=== PATIENT | female | born 1935 | race African-American/Black ===

== ENCOUNTER 2021-08-13 13:04 | Inpatient (IN) | payer MEDICARE ==
[~2021-08-13] VITALS: Ht 167.6 cm; Wt 70.3 kg
[2021-08-13] MEDS ORDERED: IOHEXOL-350 100 ML BOTTLE ONE (14:31)
[2021-08-13 14:39] LABS: BASOPHILS % 0.5 % (0.0-2.0); EOSINOPHILS % 1.4 % (0.0-5.0); HEMATOCRIT. 38.5 % (36.0-48.0); HEMOGLOBIN. 12.6 g/dL (12.0-16.0); LYMPHOCYTES % 31.5 % (20.0-50.0); MEAN CORPUSCULAR HEMOGLOBIN 30.3 pg (28.0-32.0); MEAN CORPUSCULAR VOLUME 92.3 fL (81.0-99.0); MEAN PLATELET VOLUME 7.7 fl (7.4-10.4); NEUTROPHILS % 57.6 % (40.0-76.0); PLATELET 151 x1000/uL (130-400); RED BLOOD CELL COUNT 4.17 mill/uL (4.2-5.4); RED CELL DISTRIBUTION WIDTH 13.8 % (11.6-14.6)
[2021-08-13 14:41] LABS: CHLORIDE 110 mEq/L (98-107)
[2021-08-13 14:47] LABS: ETHANOL BLOOD < 10 mg/dL
[2021-08-13 19:08] LABS: CLARITY URINE CLEAR (CLEAR); COLOR URINE YELLOW (YELLOW); KETONES URINE NEGATIVE (NEGATIVE); LEUKOCYTE ESTERASE URINE TRACE (NEGATIVE); NITRITE URINE NEGATIVE (NEGATIVE); OCCULT BLOOD URINE NEGATIVE (NEGATIVE); PROTEIN URINE NEGATIVE (NEGATIVE); SPECIFIC GRAVITY URINE 1.049 (1.005-1.030); UROBILINOGEN URINE 0.2 E.U./dL (0.2-1.0)
[2021-08-13 19:32] LABS: *AMPHETAMINES SCREEN URINE NEGATIVE (NEGATIVE); *BARBITURATES SCREEN URINE NEGATIVE (NEGATIVE); *BENZODIAZEPINES SCREEN URINE NEGATIVE (NEGATIVE); *COCAINE SCREEN URINE NEGATIVE (NEGATIVE); METHADONE URINE SCREEN NEGATIVE (NEGATIVE); OPIATES URINE SCREEN NEGATIVE (NEGATIVE)
[2021-08-13 19:33] LABS: CANNABINOID URINE SCREEN NEGATIVE (NEGATIVE); PHENCYCLIDINE URINE SCREEN NEGATIVE (NEGATIVE)
[2021-08-14] VITALS (7 sets, daily range): BP systolic 105–149; BP diastolic 58–71
[2021-08-14] MEDS ORDERED: ONDANSETRON HCL 4MG/2ML INJ IV PRN (01:30)
[2021-08-14] MEDS ORDERED: CLONIDINE 0.1MG TABLET PO PRN (01:30)
[2021-08-14] MEDS ORDERED: GUAIFENESIN 200MG/10ML SUGAR FREE UDC PO PRN (01:30)
[2021-08-14] MEDS ORDERED: ZOLPIDEM TARTRATE 5MG TABLET PO PRN (01:30)
[2021-08-14] MEDS ORDERED: DIPHENHYDRAMINE 50MG/ML VIAL IV PRN (01:30)
[2021-08-14] MEDS ORDERED: ACETAMINOPHEN 325MG TABLET PO PRN ×2 (01:30)
[2021-08-14] MEDS ORDERED: MAGNESIUM/ALUMINUM HYDROXIDE/SIMETHICONE 30ML UDC PO PRN (01:30)
[2021-08-14] MEDS: SODIUM CHLORIDE 0.9% INJ 3ML FLUSH IVF SCH ×3 (06:28→20:28)
[2021-08-14] MEDS: APIXABAN 5 MG TABLET PO SCH ×2 (08:56→18:01)
[2021-08-14] MEDS: METOPROLOL TARTRATE 50MG TABLET PO SCH ×2 (08:56→20:26)
[2021-08-14] MEDS ORDERED: FAMO20TA8 PO (14:19)
[2021-08-14] MEDS ORDERED: FAMO20TA8 MT (14:20)
[2021-08-14] MEDS ORDERED: LOSA50TA41 PO (14:21)
[2021-08-14] MEDS ORDERED: APIX5TAB PO ×2 (14:22→14:26)
[2021-08-14] MEDS ORDERED: ATOR40TA70 PO (14:25)
[2021-08-14] MEDS: ATORVASTATIN CALCIUM 10MG TABLET PO SCH (20:28)
[2021-08-15] VITALS: BP 113/60
[2021-08-15 04:00] VITALS: BP 112/49
[2021-08-15 05:36] LABS: BASOPHILS % 0.4 % (0.0-2.0); EOSINOPHILS % 1.3 % (0.0-5.0); HEMATOCRIT. 36.2 % (36.0-48.0); LYMPHOCYTES % 42.3 % (20.0-50.0); MEAN CORPUSCULAR HEMOGLOBIN 30.3 pg (28.0-32.0); MEAN CORPUSCULAR VOLUME 91.2 fL (81.0-99.0); MEAN PLATELET VOLUME 7.8 fl (7.4-10.4); PLATELET 149 x1000/uL (130-400); RED BLOOD CELL COUNT 3.97 mill/uL (4.2-5.4); RED CELL DISTRIBUTION WIDTH 13.5 % (11.6-14.6)
[2021-08-15 05:55] LABS: CHLORIDE 108 mEq/L (98-107)
[2021-08-15 08:00] VITALS: BP 120/56
[2021-08-15] MEDS: APIXABAN 5 MG TABLET PO SCH ×2 (08:38→18:26)
[2021-08-15] MEDS: METOPROLOL TARTRATE 25MG TABLET PO SCH ×2 (08:39→21:00)
[2021-08-15 12:00] VITALS: BP 107/55
[2021-08-15 16:00] VITALS: BP 103/56
[2021-08-15 20:00] VITALS: BP 100/52
[2021-08-15] MEDS: ATORVASTATIN CALCIUM 10MG TABLET PO SCH (21:13)
[2021-08-15] MEDS: SODIUM CHLORIDE 0.9% INJ 3ML FLUSH IVF SCH (21:14)
[2021-08-16] VITALS (7 sets, daily range): BP systolic 99–123; BP diastolic 52–63
[2021-08-16 05:31] LABS: BASOPHILS % 0.3 % (0.0-2.0); EOSINOPHILS % 1.9 % (0.0-5.0); HEMATOCRIT. 36.4 % (36.0-48.0); HEMOGLOBIN. 12.1 g/dL (12.0-16.0); MEAN CORPUSCULAR HEMOGLOBIN 30.5 pg (28.0-32.0); MEAN CORPUSCULAR VOLUME 91.4 fL (81.0-99.0); MEAN PLATELET VOLUME 7.9 fl (7.4-10.4); MONOCYTES % 8.8 % (2.0-8.0); PLATELET 151 x1000/uL (130-400); RED BLOOD CELL COUNT 3.98 mill/uL (4.2-5.4); RED CELL DISTRIBUTION WIDTH 13.3 % (11.6-14.6)
[2021-08-16] MEDS: SODIUM CHLORIDE 0.9% INJ 3ML FLUSH IVF SCH ×2 (06:02→15:50)
[2021-08-16 06:06] LABS: CHLORIDE 108 mEq/L (98-107)
[2021-08-16 06:19] LABS: LDL CHOLESTEROL 27 mg/dL (5-100)
[2021-08-16 06:22] LABS: HDL CHOLESTEROL 50 mg/dL (40-59)
[2021-08-16] MEDS: METOPROLOL TARTRATE 25MG TABLET PO SCH ×2 (07:59→20:19)
[2021-08-16] MEDS: APIXABAN 5 MG TABLET PO SCH ×2 (07:59→17:24)
[2021-08-16] MEDS: ATORVASTATIN CALCIUM 10MG TABLET PO SCH (20:19)
== END 2021-08-16 21:20 | DRG 65 ==
LOC: ER 13:27 → 6WST 20:29 → EDBEDREQ 20:34 → EDBEDREQSVC 20:34 → EDBEDREQTM 20:34 → ENRESERV 23:54
PROVIDERS: ADMIT Internal Medicine; ATTEND Internal Medicine
PROC: 4A10X4Z Monitoring of Central Nervous Electrical Activity, External Approach (ICD-10-PCS; principal; 2021-08-16)
DX: I63.9 Cerebral infarction, unspecified (principal); I48.19 Other persistent atrial fibrillation; G81.94 Hemiplegia, unspecified affecting left nondominant side; I42.9 Cardiomyopathy, unspecified; I11.0 Hypertensive heart disease with heart failure; I50.9 Heart failure, unspecified; E78.00 Pure hypercholesterolemia, unspecified; E78.5 Hyperlipidemia, unspecified; I48.0 Paroxysmal atrial fibrillation; R26.0 Ataxic gait; I08.1 Rheumatic disorders of both mitral and tricuspid valves; Z96.652 Presence of left artificial knee joint; Z79.01 Long term (current) use of anticoagulants; Z79.899 Other long term (current) drug therapy; I69.392 Facial weakness following cerebral infarction
CPT/HCPCS: 36415; 70496; 70498; 70551; 71045; 80048; 80053; 80061; 80305; 80320; 81003; 82962; 84484; 85025; 93005; 93306; 95816; 97162; 97166; 97530; 99291; Q9967; G0480

== ENCOUNTER 2021-08-16 21:20 | Inpatient (IN) | payer MEDICARE ==
[~2021-08-16] VITALS: Ht 167.6 cm; Wt 70.3 kg
[2021-08-16 21:20] VITALS: BP_SYST 110; BP_SYST 120; BP_DIAS 64
[~2021-08-16 21:20] MED LIST: APIX5TAB PO; ATOR40TA70 PO; FAMO20TA8 MT; FAMO20TA8 PO; LOSA50TA41 PO
[2021-08-16] MEDS ORDERED: ZOLPIDEM TARTRATE 5MG TABLET PO PRN (23:15)
[2021-08-16] MEDS ORDERED: CLONIDINE 0.1MG TABLET PO PRN (23:15)
[2021-08-16] MEDS ORDERED: DIPHENHYDRAMINE 25MG CAPSULE PO PRN (23:15)
[2021-08-16] MEDS ORDERED: GUAIFENESIN 200MG/10ML SUGAR FREE UDC PO PRN (23:15)
[2021-08-16] MEDS ORDERED: MAGNESIUM/ALUMINUM HYDROXIDE/SIMETHICONE 30ML UDC PO PRN (23:15)
[2021-08-16] MEDS ORDERED: ONDANSETRON HCL 4MG TABLET PO PRN (23:15)
[2021-08-16] MEDS ORDERED: ACETAMINOPHEN 325MG TABLET PO PRN (23:15)
[2021-08-17] MEDS ORDERED: SODIUM CHLORIDE 0.9% INJ 3ML FLUSH IVF ONE (06:00)
[2021-08-17 08:04] VITALS: BP 130/75
[2021-08-17] MEDS: METOPROLOL TARTRATE 25MG TABLET PO SCH ×2 (09:08→21:22)
[2021-08-17] MEDS: APIXABAN 5 MG TABLET PO SCH ×2 (09:08→17:14)
[2021-08-17 20:00] VITALS: BP 125/59
[2021-08-17] MEDS: ATORVASTATIN CALCIUM 10MG TABLET PO SCH (21:21)
[2021-08-18] MEDS ORDERED: BISACODYL 5MG TABLET PO NR (06:00)
[2021-08-18 08:00] VITALS: BP 97/62
[2021-08-18] MEDS: METOPROLOL TARTRATE 25MG TABLET PO SCH ×2 (09:00→20:50)
[2021-08-18] MEDS: APIXABAN 5 MG TABLET PO SCH ×2 (09:04→17:19)
[2021-08-18 20:00] VITALS: BP 118/55
[2021-08-18] MEDS: ATORVASTATIN CALCIUM 10MG TABLET PO SCH (20:50)
[2021-08-19 06:11] LABS: CHLORIDE 111 mEq/L (98-107)
[2021-08-19 06:36] LABS: BASOPHILS % 0.6 % (0.0-2.0); EOSINOPHILS % 3.1 % (0.0-5.0); HEMATOCRIT. 36.5 % (36.0-48.0); HEMOGLOBIN. 12.2 g/dL (12.0-16.0); MEAN CORPUSCULAR HEMOGLOBIN 30.6 pg (28.0-32.0); MEAN CORPUSCULAR VOLUME 91.5 fL (81.0-99.0); MEAN PLATELET VOLUME 7.7 fl (7.4-10.4); MONOCYTES % 9.4 % (2.0-8.0); NEUTROPHILS % 41.9 % (40.0-76.0); PLATELET 168 x1000/uL (130-400); RED BLOOD CELL COUNT 3.99 mill/uL (4.2-5.4)
[2021-08-19 07:40] VITALS: BP 112/60
[2021-08-19] MEDS: APIXABAN 5 MG TABLET PO SCH ×2 (10:06→17:41)
[2021-08-19] MEDS: METOPROLOL TARTRATE 25MG TABLET PO SCH ×2 (10:06→20:13)
[2021-08-19 20:00] VITALS: BP 123/67
[2021-08-19] MEDS: ATORVASTATIN CALCIUM 10MG TABLET PO SCH (20:13)
[2021-08-20 08:00] VITALS: BP 107/65
[2021-08-20] MEDS: METOPROLOL TARTRATE 25MG TABLET PO SCH ×2 (08:49→20:09)
[2021-08-20] MEDS: APIXABAN 5 MG TABLET PO SCH ×2 (08:49→16:41)
[2021-08-20 19:55] VITALS: BP 137/75
[2021-08-20] MEDS: ATORVASTATIN CALCIUM 10MG TABLET PO SCH (20:08)
[2021-08-21 08:00] VITALS: BP 121/60
[2021-08-21] MEDS: APIXABAN 5 MG TABLET PO SCH ×2 (09:27→18:00)
[2021-08-21] MEDS: METOPROLOL TARTRATE 25MG TABLET PO SCH ×2 (09:28→20:18)
[2021-08-21 20:00] VITALS: BP 155/63
[2021-08-21] MEDS: ATORVASTATIN CALCIUM 10MG TABLET PO SCH (20:16)
[2021-08-22 08:00] VITALS: BP 114/63
[2021-08-22] MEDS: METOPROLOL TARTRATE 25MG TABLET PO SCH ×2 (09:24→21:35)
[2021-08-22] MEDS: APIXABAN 5 MG TABLET PO SCH ×2 (09:24→16:18)
[2021-08-22 20:00] VITALS: BP 137/74
[2021-08-22] MEDS: ATORVASTATIN CALCIUM 10MG TABLET PO SCH (21:34)
[2021-08-23 08:00] VITALS: BP 133/73
[2021-08-23] MEDS: APIXABAN 5 MG TABLET PO SCH ×2 (09:19→17:15)
[2021-08-23] MEDS: METOPROLOL TARTRATE 25MG TABLET PO SCH ×2 (09:19→20:52)
[2021-08-23 20:00] VITALS: BP 106/65
[2021-08-23] MEDS: ATORVASTATIN CALCIUM 10MG TABLET PO SCH (20:52)
[2021-08-24 06:23] LABS: BASOPHILS % 0.8 % (0.0-2.0); EOSINOPHILS % 3.8 % (0.0-5.0); HEMATOCRIT. 37.4 % (36.0-48.0); HEMOGLOBIN. 12.9 g/dL (12.0-16.0); LYMPHOCYTES % 45.1 % (20.0-50.0); MEAN CORPUSCULAR HEMOGLOBIN 31.1 pg (28.0-32.0); MEAN CORPUSCULAR VOLUME 90.1 fL (81.0-99.0); MONOCYTES % 8.2 % (2.0-8.0); NEUTROPHILS % 42.1 % (40.0-76.0); PLATELET 175 x1000/uL (130-400); RED BLOOD CELL COUNT 4.14 mill/uL (4.2-5.4); RED CELL DISTRIBUTION WIDTH 13.4 % (11.6-14.6)
[2021-08-24 07:03] LABS: CHLORIDE 110 mEq/L (98-107)
[2021-08-24 07:58] VITALS: BP 139/78
[2021-08-24] MEDS: APIXABAN 5 MG TABLET PO SCH ×2 (08:57→16:51)
[2021-08-24] MEDS: METOPROLOL TARTRATE 25MG TABLET PO SCH ×2 (08:57→20:51)
[2021-08-24 20:00] VITALS: BP 111/70
[2021-08-24] MEDS: ATORVASTATIN CALCIUM 10MG TABLET PO SCH (20:51)
[2021-08-25 08:00] VITALS: BP 133/83
[2021-08-25] MEDS: APIXABAN 5 MG TABLET PO SCH ×2 (08:25→18:11)
[2021-08-25] MEDS: METOPROLOL TARTRATE 25MG TABLET PO SCH ×2 (08:27→20:30)
[2021-08-25 20:00] VITALS: BP 128/65
[2021-08-25] MEDS: ATORVASTATIN CALCIUM 10MG TABLET PO SCH (20:30)
[2021-08-26 07:02] LABS: BASOPHILS % 0.7 % (0.0-2.0); EOSINOPHILS % 3.6 % (0.0-5.0); HEMATOCRIT. 38.3 % (36.0-48.0); LYMPHOCYTES % 46.5 % (20.0-50.0); MEAN CORPUSCULAR HEMOGLOBIN 30.8 pg (28.0-32.0); MEAN CORPUSCULAR VOLUME 90.8 fL (81.0-99.0); MEAN PLATELET VOLUME 7.7 fl (7.4-10.4); MONOCYTES % 9.3 % (2.0-8.0); NEUTROPHILS % 39.9 % (40.0-76.0); PLATELET 192 x1000/uL (130-400); RED BLOOD CELL COUNT 4.21 mill/uL (4.2-5.4); RED CELL DISTRIBUTION WIDTH 13.6 % (11.6-14.6)
[2021-08-26 07:41] LABS: CHLORIDE 110 mEq/L (98-107)
[2021-08-26 08:00] VITALS: BP 109/54
[2021-08-26] MEDS: METOPROLOL TARTRATE 25MG TABLET PO SCH ×2 (09:00→20:33)
[2021-08-26] MEDS: APIXABAN 5 MG TABLET PO SCH ×2 (09:03→16:15)
[2021-08-26 20:00] VITALS: BP 144/57
[2021-08-26] MEDS: ATORVASTATIN CALCIUM 10MG TABLET PO SCH (20:32)
[2021-08-27 08:00] VITALS: BP 98/50
[2021-08-27] MEDS: METOPROLOL TARTRATE 25MG TABLET PO SCH ×2 (09:00→20:13)
[2021-08-27] MEDS: APIXABAN 5 MG TABLET PO SCH ×2 (09:11→16:44)
[2021-08-27 20:00] VITALS: BP 114/58
[2021-08-27] MEDS: ATORVASTATIN CALCIUM 10MG TABLET PO SCH (20:13)
[2021-08-28 08:00] VITALS: BP 128/60
[2021-08-28] MEDS: APIXABAN 5 MG TABLET PO SCH (11:28)
[2021-08-28] MEDS: METOPROLOL TARTRATE 25MG TABLET PO SCH (11:29)
[2021-08-28 13:15] VITALS: BP 128/60
== END 2021-08-28 14:35 | disposition home health service (06) | DRG 56 ==
LOC: UNDOADMIN 21:20 → 4WST 21:20 → UNDOADMIN 22:45
PROVIDERS: ADMIT Psychiatry & Neurology Neurology; ATTEND Internal Medicine
DX: I69.354 Hemiplegia and hemiparesis following cerebral infarction affecting left non-dominant side (principal); I63.89 Other cerebral infarction; I48.19 Other persistent atrial fibrillation; I42.9 Cardiomyopathy, unspecified; I50.22 Chronic systolic (congestive) heart failure; E46 Unspecified protein-calorie malnutrition; I11.0 Hypertensive heart disease with heart failure; I08.1 Rheumatic disorders of both mitral and tricuspid valves; F06.34 Mood disorder due to known physiological condition with mixed features; F01.50 Vascular dementia, unspecified severity, without behavioral disturbance, psychotic disturbance, mood disturbance, and anxiety; E78.5 Hyperlipidemia, unspecified; E78.00 Pure hypercholesterolemia, unspecified; R53.81 Other malaise; Z79.01 Long term (current) use of anticoagulants; Z86.718 Personal history of other venous thrombosis and embolism; Z68.25 Body mass index [BMI] 25.0-25.9, adult
CPT/HCPCS: 36415; 80048; 85025; 92523; 92610; 93005; 93970; 93971; 97110; 97116; 97150; 97162; 97166; 97530; 97535